=== PATIENT | female | born 1985 | race Asian ===

== ENCOUNTER 2017-04-06 19:35 | Emergency (ER) | payer BC ==
[2017-04-06 20:01] VITALS: BP 110/67
--- NOTE | 2017-04-06 21:00 | UC ---
Skin Complaint HPI - HPI Summary HPI Summary: PATIENT PRESENTS WITH SMALL CLUSTER OF LIGHT YELLOW VESICLES OF HER RIGHT HAND, SHE STATES IT IS ITCHY AND PUSSY. SHE DENIES ANY FEVER, CHILLS OR RED STREAKS FROM THE AREA. sHE STATES AT TIMES IT APPEARS MOIST AND WILL DEVELOP A YELLOW CRUST. SHE NOTED SHE IS FIVE MONTHS , G2,P1,A0. - History of Current Complaint Chief Complaint: UCRash Time Seen by Provider: 04/06/17 20:42 Stated Complaint: RASH AND ITCHINESS Hx Obtained From: Patient Hx Last Menstrual Period: 5 months Onset/Duration: Gradual Onset, Lasting Days Skin Exposure Onset/Duration: Days Ago Onset Severity: Mild Current Severity: Mild Location: Hand (Right) Character: Pruritus, Redness, Raised Aggravating Factor(s): Nothing Alleviating Factor(s): Nothing Associated Signs & Symptoms: Positive: Negative - Allergy/Home Medications Allergies/Adverse Reactions: Allergies Allergy/AdvReac Type Severity Reaction Status Date / Time No Known Allergies Allergy Verified 04/06/17 20:01 Review of Systems Constitutional: Negative Skin: Rash Eyes: Negative ENT: Negative Respiratory: Negative Cardiovascular: Negative Gastrointestinal: Negative Genitourinary: Negative Motor: Negative Neurovascular: Negative Is Patient Immunocompromised?: No All Other Systems Reviewed And Are Negative: Yes PMH/Surg Hx/FS Hx/Imm Hx Previously Healthy: Yes - Surgical History Surgical History: None Surgery Procedure, Year, and Place: eye surgury as a child - Family History Known Family History: Positive: None - Social History Occupation: Employed Full-time Lives: With Family Alcohol Use: None Substance Use Type: None Smoking Status (MU): Never Smoked Tobacco - Immunization History Most Recent Influenza Vaccination: n/a Most Recent Tetanus Shot: unknown Most Recent Pneumonia Vaccination: n/a Physical Exam Triage Information Reviewed: Yes Appearance: Well-Appearing Vital Signs: Initial Vital Signs Temp 98.7 F 04/06/17 19:55 Pulse 88 04/06/17 19:55 Resp 16 04/06/17 19:55 BP 110/67 04/06/17 19:55 Pulse Ox 100 04/06/17 19:55 Vital Signs Reviewed: Yes Eye Exam: Normal ENT Exam: Normal Neck exam: Normal Neck: Positive: 1 Respiratory Exam: Normal Cardiovascular Exam: Normal Abdominal Exam: Normal Skin Exam: Other - RIGHT HAND DORSUM ASPECT AT BASE OF THUMB CLUSTER OF MACULAR/ PAPULA LIGHT YELLOW HONEY COLORED PATCH IN CIRCULAR PATTERN, WITH MILD ERYTHEMA AT BASE. Course/Dx - Course Course Of Treatment: PATIENT PRESENTS WITH AN IMPETIGO RASH ON HER RIGHT HAND. SHE WAS RX BACTRBAN OINTMENT TO APPLY 4-5 TIMES DAILY UNTIL RESOLVED. - Differential Diagnoses - Skin Complaint Differential Diagnoses: Impetigo - Diagnoses Provider Diagnoses: IMPETIGO Discharge - Discharge Plan Condition: Stable Disposition: HOME Prescriptions: Mupirocin 2% OINT* [Bactroban 2 % Oint*] 1 applic TOPICAL BID #1 tube Patient Education Materials: Impetigo (DC) Referrals: No Primary Care Phys,NOPCP [Primary Care Provider] - Additional Instructions: APPLY TO THE AREA 3-4-5 TIMES DAILY UNTIL RESOLVED.
== END 2017-04-06 21:25 | disposition home or self-care (01) ==
LOC: UCEAST 19:35
DX: O26.892 Other specified pregnancy related conditions, second trimester (principal); L01.00 Impetigo, unspecified; Z3A.00 Weeks of gestation of pregnancy not specified
CPT/HCPCS: 99211; G0463

== ENCOUNTER 2017-08-11 13:17 | Inpatient (IN) | payer BC ==
--- NOTE | 2017-08-11 13:55 | PN ---
L&D Outpatient: Visit - Reproductive Information Estimated Due Date: 08/21/17 Gestational Age: 38 Weeks and 4 Days : 2 Para: 1 - Reason for Visit Visit Reason: irregular contraction since last night that became regular every 8-10 minutes this AM. Pt reports bloody show since last . Pt denies bleeding, LOF and report + FM. - Antepartal Records Antepartal Record: Reviewed, Complicated by: - low lying placenta ( resolved), polyhydramnios (resolved), GBS +, varicella nonimmune and rubella equivocal - Patient History Patient History Significant: No L&D Outpatient: ROS - Review of Systems Constitutional: Comfortable CV Complaint: No Respiratory: Shortness of Breath: No Gastrointestinal: No Nausea/Vomiting, Normal Bowel Movement Genitourinary: No Dysuria, No Bleeding, No Leaking Fluid Musculoskeletal: Contractions Movement: Normal L&D Outpatient: Exam Vitals - Most Recent: T:98.7, P:86, R:16, BP: 102/64 - Cervical Exam Cervical Exam: 4-5/100/0 - Abdominal Exam Abdomen Exam: Non-Tender, Fundal Height Consistent with Dates - Membranes Membrane Status: Intact - Ultrasound/Biophysical Profile Ultrasound Status: Not Done L&D Outpatient: EFM - External Monitor Findings Baseline Heart Rate: 145 External Monitor Findings: Accelerations Present, No Pattern of Variable or Late Decelerations, Variability Moderate, Baseline Stable L&D Outpatient: Asses/Plan Assessment: Early Labor - Discharge Diagnosis Discharge Diagnosis: Supervision-Normal Preg - continue to observe and reevaluate
[2017-08-11] MEDS ORDERED: Buffered Lidocaine 0.9% SYRIN* 5 ML/SYR SYRINGE ONE (17:47)
[2017-08-11] MEDS ORDERED: Penicillin G Potassium IV* 5,000,000 UNITS in NS 0.9% 100 ML* 100 ML IVPB ONE (17:48)
--- NOTE | 2017-08-11 17:56 | HP ---
General Information - General Information Maternal Age: 32 Grav: 2 Para: 1 SAB: 0 IEA: 0 Estimated Due Date: 08/21/17 Determined By: LMP Gestational Age in Weeks and Days: 38 Weeks and 4 Days Maternal Blood Type and Rh: A Positive - Results this Serology/RPR Result: Non-Reactive Rubella Result: Non-Immune HBsAg Result: Negative HIV Result: Negative GBS Culture Result: Positive Past Medical History Delivery History: Hx Uncomplicated Vaginal Delivery Pertinent Past Medical History: Non-Contributory Pertinent Past Surgical History: See Records Pertinent Family History: See Records - Antepartal Records Antepartal Records: Reviewed, Complicated by: - low lying placenta resolved 06/03/17, polyhydramnios resolved, GBS + Review of Systems Constitutional: Uncomfortable CV Complaint: No Respiratory: Shortness of Breath: No Gastrointestinal: No Nausea/Vomiting Genitourinary: No Dysuria, No Bleeding, No Leaking Fluid Musculoskeletal: Contractions Neurological: No Headache, No Visual Changes Movement: Normal Exam Allergies/Adverse Reactions: Allergies No Known Allergies Allergy (Verified 08/11/17 13:57) T:98.7, P:86, R:16, BP:102/64 - Measurements Height: 5 ft Weight: 154 lb Weight in lbs: 154 Body Mass Index (BMI): 30.0 Pre- Weight: 124 lb Weight Gained This : 30 lbs and 0 ozs - Exam Abdomen: No Upper Quadrant Pain Breast: Breast Exam Deferred CVA: No CVA Tenderness Extremities: No Edema Heart: Normal Rhythm/Heart Sounds HEENT: No Significant Findings Lungs: Clear Bilaterally Rectal: Rectal Exam Deferred Thyroid: No Thyromegaly - Abdominal Exam Abdomen Exam: Fundal Height Consistent with Dates - Ultrasound/Biophysical Profile Ultrasound Status: Not Done Targeted Exam Findings Cervical Exam: 6cm Effacement: 100% Station: 0 Presenting Part: Vertex Membrane Status: Intact Bleeding/Discharge: Bloody Show EFM Findings - External Monitor Findings Baseline Heart Rate: 140 External Monitor Findings: Accelerations Present, No Pattern of Variable or Late Decelerations, Variability Moderate, Baseline Stable Contractions: Regular, Moderate, 45-90 Seconds Assessment/Plan - Reason for Visit Reason for Visit: active labor - Obstetrical Risk Factors Obstetrical Risk Factors: GBS Positive - Plan Plan: Active Labor, Antibiotic Prophylaxis - Date/Time of Admission Date of Admission: 08/11/17 Time of Admission: 17:45
[2017-08-11 18:20] LABS: ABS Basophils 0.1 10^3/ul (0-0.2); ABS Eosinophils 0.5 10^3/ul (0-0.6); ABS Lymphocytes 1.6 10^3/ul (1.0-4.8); ABS Monocytes 0.9 10^3/ul (0-0.8); ABS Neutrophils 8.9 10^3/ul (1.5-7.7); ABS Nucleated RBC 0 10^3/ul; Eosinophil % 3.9 % (0-6); Hematocrit 37 % (35-47); Hemoglobin 12.3 g/dl (12.0-16.0); Lymphocyte % 13.1 % (25-47); Mean Corpuscular HGB Conc 33 g/dl (31-36); Mean Corpuscular Hemoglobin 27 pg (27-31); Mean Corpuscular Volume 82 fL (80-97); Mean Platelet Volume 7.7 um3 (7.4-10.4); Nucleated Red Blood Cells % 0; Platelet Count 253 10^3/ul (150-450); Red Blood Count 4.54 10^6/ul (4.0-5.4); Red Cell Distribution Width 14 % (10.5-15); White Blood Count 11.9 10^3/ul (3.5-10.8)
[2017-08-11] MEDS ORDERED: Penicillin G Potassium IV* 2,500,000 UNITS in NS 0.9% 100 ML* 100 ML IVPB SCH (22:30)
[2017-08-11] MEDS ORDERED: Witch Hazel PAD* JAR TOPICAL PRN (23:55)
[2017-08-11] MEDS ORDERED: Measles, Mumps,Rubella VACC* 0.5 ML/VIAL SUBCUT ONE (23:55)
[2017-08-11] MEDS ORDERED: Glycerin ADULT SUPP PR PRN (23:55)
[2017-08-11] MEDS ORDERED: Acetaminophen TAB* 325 MG PO PRN (23:55)
[2017-08-11] MEDS ORDERED: Dibucaine 1% 28.35 GM TUBE PR PRN (23:55)
[2017-08-11] MEDS ORDERED: Varicella Virus Vaccine Live* 0.5 ML VIAL SUBCUT ONE (23:55)
[2017-08-12] MEDS ORDERED: Simethicone TAB* 80 MG TAB.CHEW PO SCH (08:30)
[2017-08-12] MEDS: Docusate CAP* 100 MG PO SCH ×3 (08:31→21:32)
[2017-08-12] MEDS ORDERED: Ferrous Gluconate TAB* 324 MG TAB PO SCH (09:00)
[2017-08-12 09:40] LABS: ABS Basophils 0.1 10^3/ul (0-0.2); ABS Eosinophils 0.2 10^3/ul (0-0.6); ABS Lymphocytes 1.6 10^3/ul (1.0-4.8); ABS Monocytes 0.8 10^3/ul (0-0.8); ABS Neutrophils 10.9 10^3/ul (1.5-7.7); ABS Nucleated RBC 0 10^3/ul; Eosinophil % 1.7 % (0-6); Hematocrit 35 % (35-47); Hemoglobin 11.4 g/dl (12.0-16.0); Lymphocyte % 11.7 % (25-47); Mean Corpuscular HGB Conc 33 g/dl (31-36); Mean Corpuscular Hemoglobin 27 pg (27-31); Mean Corpuscular Volume 81 fL (80-97); Mean Platelet Volume 7.8 um3 (7.4-10.4); Nucleated Red Blood Cells % 0; Platelet Count 251 10^3/ul (150-450); Red Blood Count 4.26 10^6/ul (4.0-5.4); Red Cell Distribution Width 14 % (10.5-15); White Blood Count 13.7 10^3/ul (3.5-10.8)
[2017-08-12] MEDS: Ibuprofen TAB* 600 MG PO PRN ×2 (12:13→18:02)
[2017-08-12 20:19] VITALS: BP 99/55
[2017-08-13] MEDS: Ibuprofen TAB* 600 MG PO PRN (08:36)
[2017-08-13] MEDS: Docusate CAP* 100 MG PO SCH (08:36)
== END 2017-08-13 14:50 | disposition home or self-care (01) | DRG 560 ==
LOC: MCHOBOUT 13:17 → MCHOB 17:46
PROVIDERS: ADMIT Midwife; ATTEND Midwife
PROC: 10E0XZZ Delivery of Products of Conception, External Approach (ICD-10-PCS; principal; 2017-08-11)
PROC: 4A1HXCZ Monitoring of Products of Conception, Cardiac Rate, External Approach (ICD-10-PCS; 2017-08-11)
PROC: 0UQMXZZ Repair Vulva, External Approach (ICD-10-PCS; 2017-08-11)
DX: O99.824 Streptococcus B carrier state complicating childbirth (principal); Z3A.38 38 weeks gestation of pregnancy; Z37.0 Single live birth; O70.0 First degree perineal laceration during delivery
CPT/HCPCS: 36415; 85025; 86850; 86900; 86901; 90707; A9270-GY; J2540

== ENCOUNTER 2017-09-12 09:55 | Emergency (ER) | payer BC ==
[2017-09-12 10:12] VITALS: BP 106/65
--- NOTE | 2017-09-12 10:59 | UC ---
General HPI - HPI Summary HPI Summary: pt is breast feeding 1 mo old. yesterday L lateral breast became painful, palp lump, and few hors later she developed fever 101 and fatigue. she is taking advil for fever but when it wears off her fever returns. she has cont to pump or have infant feed from both breasts despite fever and pain - History of Current Complaint Chief Complaint: UCGeneralIllness Stated Complaint: FEVER Time Seen by Provider: 09/12/17 10:43 Hx Obtained From: Patient Hx Last Menstrual Period: 1 mo Onset/Duration: Gradual Onset - over 24h Timing: Constant Onset Severity: Mild Current Severity: Moderate Pain Intensity: 6 Associated Signs & Symptoms: Positive: Fever, Other - fatigue - Allergy/Home Medications Allergies/Adverse Reactions: Allergies Allergy/AdvReac Type Severity Reaction Status Date / Time No Known Allergies Allergy Verified 09/12/17 10:12 Home Medications: Home Medications Fenugreek Seed Extract [Fenugreek] 500 mg PO 09/12/17 [History] PMH/Surg Hx/FS Hx/Imm Hx Previously Healthy: Yes - Surgical History Surgical History: Yes Surgery Procedure, Year, and Place: eye surgury as a child - Family History Known Family History: Positive: None - Social History Occupation: Unemployed Lives: With Family Alcohol Use: None Substance Use Type: None Smoking Status (MU): Never Smoked Tobacco - Immunization History Most Recent Influenza Vaccination: n/a Most Recent Tetanus Shot: unknown Most Recent Pneumonia Vaccination: n/a Review of Systems Constitutional: Fever, Fatigue Skin: Negative Respiratory: Negative Cardiovascular: Negative Gastrointestinal: Negative Genitourinary: Negative Neurological: Negative Psychological: Negative All Other Systems Reviewed And Are Negative: Yes Physical Exam Triage Information Reviewed: Yes Appearance: Well-Appearing, No Pain Distress, Well-Nourished Vital Signs: Initial Vital Signs Temp 100.5 F 09/12/17 10:09 Pulse 115 09/12/17 10:09 Resp 18 09/12/17 10:09 BP 106/65 09/12/17 10:09 Pulse Ox 97 09/12/17 10:09 Vital Signs Reviewed: Yes Respiratory Exam: Normal Cardiovascular Exam: Normal Abdominal Exam: Normal Abdomen Description: Positive: Nontender Psychological Exam: Normal Skin Exam: Other - pain L lateral breast, min redness, no mass palp Course/Dx - Differential Dx - Multi-Symptom Differential Diagnoses: Other - blocked milk duct, mastitis Provider Diagnoses: mastitis L breast Discharge - Sign-Out/Discharge Documenting (check all that apply): Discharge/Admit/Transfer - Discharge Plan Condition: Good Disposition: HOME Prescriptions: Cephalexin CAP* [Keflex 500 CAP*] 500 mg PO QID #40 cap Patient Education Materials: Mastitis (ED) Referrals: No Primary Care Phys,NOPCP [Primary Care Provider] - Additional Instructions: apply cold packs to area of pain continue to pump or have baby feed from both breasts start antibiotic and use ibuprofen for pain and inflammation return if no improvement 2 days - Billing Disposition and Condition Condition: GOOD Disposition: Home
== END 2017-09-12 11:13 | disposition home or self-care (01) ==
LOC: UCEAST 09:55
DX: N61.0 Mastitis without abscess (principal)
CPT/HCPCS: 99212; G0463

== ENCOUNTER 2017-12-25 20:26 | Emergency (ER) | payer BC ==
[2017-12-25 20:39] VITALS: BP 134/88
--- NOTE | 2017-12-25 20:54 | UC ---
Skin Complaint HPI - HPI Summary HPI Summary: The patient is a 32-year-old female with the onset of a rash on her abdomen 3 weeks ago. The initial lesion is the largest. Initial lesion has a raised border with scale. The rash has since spread to other parts her abdomen as well as her inner thighs below her left breast and in her left axilla. She has no pets at home. He is 5 months . The rash is only mildly pruritic. - History of Current Complaint Chief Complaint: UCRash Time Seen by Provider: 12/25/17 20:45 Stated Complaint: RASHES Hx Last Menstrual Period: mirena Pain Intensity: 0 - Allergy/Home Medications Allergies/Adverse Reactions: Allergies Allergy/AdvReac Type Severity Reaction Status Date / Time No Known Allergies Allergy Verified 12/25/17 20:39 Review of Systems Constitutional: Negative Skin: Rash Eyes: Negative ENT: Negative Respiratory: Negative Cardiovascular: Negative Gastrointestinal: Negative Genitourinary: Negative Motor: Negative Neurovascular: Negative Musculoskeletal: Negative Neurological: Negative Psychological: Negative All Other Systems Reviewed And Are Negative: Yes PMH/Surg Hx/FS Hx/Imm Hx Previously Healthy: Yes - Surgical History Surgical History: Yes Surgery Procedure, Year, and Place: eye surgury as a child - Family History Known Family History: Positive: Hypertension - Social History Alcohol Use: None Substance Use Type: None Smoking Status (MU): Never Smoked Tobacco - Immunization History Most Recent Influenza Vaccination: n/a Most Recent Tetanus Shot: unknown Most Recent Pneumonia Vaccination: n/a Physical Exam Triage Information Reviewed: Yes Appearance: Well-Appearing, No Pain Distress, Well-Nourished Vital Signs: Initial Vital Signs Temp 98.3 F 12/25/17 20:33 Pulse 81 12/25/17 20:33 Resp 12 12/25/17 20:33 BP 134/88 12/25/17 20:33 Pulse Ox 97 12/25/17 20:33 Vital Signs Reviewed: Yes Eyes: Positive: Conjunctiva Clear ENT: Positive: Hearing grossly normal. Negative: Nasal congestion, Nasal drainage, Trismus, Muffled voice, Hoarse voice, Uvula midline Neck: Positive: Supple, Nontender Respiratory: Positive: Lungs clear, Normal breath sounds, No respiratory distress, No accessory muscle use Cardiovascular: Positive: RRR, No Murmur Neurological: Positive: Alert Psychological Exam: Normal Skin: Positive: Other - 2 lesions abd with raised borders and scale, numerous small rain drop sized lesions with scale, Course/Dx - Diagnoses Provider Diagnoses: rash of uncertain cause. pityriasis vs guttate psoriasis vs tinea corporis vs other Discharge - Sign-Out/Discharge Documenting (check all that apply): Patient Departure All imaging exams completed and their final reports reviewed: No Studies - Discharge Plan Condition: Stable Disposition: HOME Patient Education Materials: Acute Rash (ED) Referrals: Casandra Dinh [Medical Doctor] - As Soon As Possible Additional Instructions: I am unsure or the cause of your rash 2 lesions appear consistent with a fungal infection (tinea corporis) other diagnostic possibilities include guttate psoriasis and pyteriasis you can apply LOTRIMEN to the two lesions that have raised borders twice daily - Billing Disposition and Condition Condition: STABLE Disposition: Home
== END 2017-12-25 21:00 | disposition home or self-care (01) ==
LOC: UCEAST 20:26
DX: R21 Rash and other nonspecific skin eruption (principal)
CPT/HCPCS: 99211; G0463